=== PATIENT | female | born 1975 | race African-American/Black ===

== ENCOUNTER 2023-08-02 21:59 | Emergency (ER) | payer BC, OTHER ==
[2023-08-02 22:16] VITALS: BP 132/77; PULSE 107; RESP 18; TEMP 98.6; BMI 28.0
[2023-08-02] MEDS ORDERED: IBUPROFEN 600 MG TABLET (FP) PO ONE (22:36)
[2023-08-02] MEDS: IBUPROFEN 600 MG TABLET (FP) PO ONE (22:41)
[2023-08-02 22:52] LABS: EPI CELLS 18 /uL (0-25.1); HYALINE CASTS 1 /uL (0-3.1); PH,URINE 5.5 (5.0-8.0); URINE APPEARANCE CLOUDY; URINE BACTERIA 6347 /uL (0-1359); URINE BILIRUBIN NEGATIVE (NEGATIVE); URINE COLOR YELLOW; URINE GLUCOSE (UA) NEGATIVE (NEGATIVE); URINE KETONE TRACE (NEGATIVE); URINE LEUK ESTERASE 2+ (NEGATIVE); URINE NITRITE POSITIVE (NEGATIVE); URINE PROTEIN TRACE (NEGATIVE); URINE RBC 82 /uL (0-23.9); URINE UROBILINOGEN 0.2 mg/dL (0.2-1.0); URINE WBC 1472 /uL (0-25.8)
[2023-08-02] MEDS ORDERED: PHENAZOPYRIDINE HCL 100 MG TABLET (FP) ONE (22:54)
[2023-08-02] MEDS ORDERED: SULFAMETHOXAZOLE/TRIMETHOPRIM 800MG/160MG D.S. TABLET ONE (22:55)
[2023-08-02] MEDS: SULFAMETHOXAZOLE/TRIMETHOPRIM 800MG/160MG D.S. TABLET PO ONE (22:57)
[2023-08-02] MEDS: PHENAZOPYRIDINE HCL 100 MG TABLET (FP) PO ONE (22:57)
== END 2023-08-02 23:02 | disposition home or self-care (01) ==
LOC: JER 21:59
DX: R35.0 Frequency of micturition (principal); R30.0 Dysuria; R00.0 Tachycardia, unspecified; N30.90 Cystitis, unspecified without hematuria
CPT/HCPCS: 81003; 84703; 87086; 87186; 99283-25